=== PATIENT | female | born 1965 | race Caucasian/White ===

== ENCOUNTER 2017-07-08 09:21 | Inpatient (IN) | payer OTHER ==
[~2017-07-08] VITALS: Ht 175.3 cm; Wt 59.5 kg
--- NOTE | ~2017-07-08 | TXPLANREV ---
"PATIENT: JOEY WRAY | | [facility] UNIT #: [id number] | [address] AGE/SEX: 51 F : 69 | [address] | [place] [address] ADMIT/REG DATE: 07/08/17 | ROOM: [facility] LOC: ADTC | ADTC | Treatment Plan/Staffing Review Date: 07/30/17 Treatment plan was reviewed and determined appropriate as written: yes, client is working on relapse prevention and is to read Women and Relapse booklet. Treatment plan was reviewed and the following changes/addition/deletions are necessary: Discharge plans were reviewed and determined appropriate as previously documented: Client is being referred to [facility] to see Nahun Goldsmith on 08/07/17 at 3pm and AA/NA 4-7x/week and is to stay active [facility] to get in there if an opening comes up, unless over 1 month passes by and is doing well in [place]. Is to also go to [facility] for fellowship 08/09-. Discharge plans were reviewed and determined to be as follows: Other pertinent issues discussed during this staffing review include: Client is being recommended to a 1/2way house for added support in her recovery, to live alone in apartment is higher risk of relapse. Client had been at 1/2way house and was longest time of recovery. Staff Present: Maria De Jesus Lu, Shayna Krishnamurthy, Altagracia Hickey, Kathryn Ramsey, Gerson Wood, Maki Mcgee PRIMARY COUNSELOR: Katie Soriano Client Signature Counselor Signature Date Time "
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
--- NOTE | ~2017-07-08 | INDIVTXPL2 ---
"PATIENT: JOEY WRAY | | [facility] UNIT #: [id number] | [address] AGE/SEX: 51 F : 69 | [address] | [place] [address] ADMIT/REG DATE: 07/08/17 | ROOM: [facility] LOC: ADTC | ADTC | Individualized Treatment Plan DATE: 07/23/17 Problem Statement/Issue Identified: Client exhibits denial, minimization, and rationalization regarding their use of drugs &/or alcohol and isn't honest with self. Goal: Client is to examine Pro's and Con's about her addiction and look at what recovery offers her to enjoy life better. Objectives/Activities to achieve goal: 1. Client is to write the pros/cons list that she has arguments within herself about drinking and share with counselor. (What if I stay drinking vs if I stay sober in AA). Due Date: 07/31/17 Complete: Incomplete: 2. Client is to do EMDR therapy on this internal argument and to look at what goals could be accomplished if clean/sober. See counselor notes. Due Date: 08/02/17 Complete: Incomplete: Client Signature Date Counselor Signaure: Date Outcome/Measurement of Progress Towards Goal: Counselor Signature: Date "
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
--- NOTE | ~2017-07-08 | INDIVTXPL2 ---
"PATIENT: JOEY WRAY | | [facility] UNIT #: [id number] | [address] AGE/SEX: 51 F : 69 | [address] | [place] [address] ADMIT/REG DATE: 07/08/17 | ROOM: [facility] LOC: ADTC | ADTC | Individualized Treatment Plan DATE: 07/23/17 Problem Statement/Issue Identified: Client relapsed/returned to alcohol/drugs after previous treatment attempts. Goal: Client is to learn about Relapse Prevention, identifying relapse triggers and how to cope with them to succeed in recovery. Objectives/Activities to achieve goal: 1. Client is to attend Relapse Prevention classes every Saturday 3-4pm and participate. Due Date: 08/05/17 Complete: Incomplete: 2. Client is to fill out Relapse Prevention packet, identifying her top 10 relapse triggers and develop a plan of how to cope. Share with counselor and share selected pages in group. Due Date: 08/05/17 Complete: Incomplete: 3. Client could benefit from EMDR (using crave-x protical) to help lessen intensity of cravings in treatment or in aftercare. Due Date: ongoing Complete: Incomplete: Client Signature Date Counselor Signaure: Date Outcome/Measurement of Progress Towards Goal: Counselor Signature: Date "
--- NOTE | ~2017-07-08 | INDIVTXPL2 ---
"PATIENT: JOEY WRAY | | [facility] UNIT #: [id number] | [address] AGE/SEX: 51 F : 69 | [address] | [place] [address] ADMIT/REG DATE: 07/08/17 | ROOM: [facility] LOC: ADTC | ADTC | Individualized Treatment Plan DATE: 07/15/17 Problem Statement/Issue Identified: Client has had problems due to alcohol &/or drugs and has failed to stay clean/sober. Goal: Client is to learn about alcoholism/drug addiction, identifying consequences of her use and learn how to work the AA/NA program to succeed in living clean/sober. Objectives/Activities to achieve goal: 1. Client is to fill out Getting Started and Step 1 packets, identifying 10+ ways her use has hurt herself and others. Share with counselor and share selected pages in group. Due Date: 07/18/17 Complete: Incomplete: 2. Client is to get numbers and call potential female AA sponsors while in treatment weekly. Share progress with counselor. Due Date: ongoing Complete: Incomplete: 3. Client is to attend and talk at AA/NA weekly, make notes after a meeting of what tools/ ideas she hears that help her be motivated to succeed in recovery. Share with counselor. Due Date: ongoing Complete: Incomplete: Client Signature Date Counselor Signaure: Date Outcome/Measurement of Progress Towards Goal: Counselor Signature: Date "
--- NOTE | ~2017-07-08 | INDIVTXPL2 ---
"PATIENT: JOEY WRAY | | [facility] UNIT #: [id number] | [address] AGE/SEX: 51 F : 69 | [address] | [place] [address] ADMIT/REG DATE: 07/08/17 | ROOM: [facility] LOC: ADTC | ADTC | Individualized Treatment Plan DATE: 07/23/17 Problem Statement/Issue Identified: Client doesn't recognize difference between muslim and spirituality which has contributed to shame and abuse of chemicals. Goal: Client is to learn about spirituality and build stronger support for her recovery. Objectives/Activities to achieve goal: 1. Client is to examine AA/NA/using a sponsor as a HP in addition to Nature, list ways meetings help her. Due Date: 08/02/17 Complete: Incomplete: 2. Client is to attend Spirituality classes every Wed 3-4pm and participate. See notes. Due Date: 08/05/17 Complete: Incomplete: 3. Client is to fill out Spirituality packet, identifying her HP and how she gains support in her recovery. Due Date: ongoing Complete: Incomplete: Client Signature Date Counselor Signaure: Date Outcome/Measurement of Progress Towards Goal: Counselor Signature: Date "
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
[~2017-07-08 09:21] MED LIST: DAILY MULTIPLE1 EAC1 PO; FOLIC ACID1 MG PO; HABITROL DPS21 MG TD; LAMICTAL DPS100 MG PO; LEVAQUIN250 MG PO; MAALOX DPS30 ML PO; MAGNESIUM OXID400 MG PO; PEPCID20 MG PO; SURFAK240 MG PO; TYLENOL325 MG PO; VITAMIN B1100 MG PO
--- NOTE | 2017-07-08 11:25 | NUR ---
ADMISSION NOTE Rights/Responsibilities: Copy given and explained to client. Signed and accepted by client. Client oriented to physical lay out of the ADTC unit, given Big Book and admission packet. A John was assigned. Karmen Client is a 51yr old female. Referred by [facility]. Brought to tx by [facility] staff, where she has been for the past 5 days. Lives in [place], [place]. DOC, alcohol, last used 02/26/17, pint daily. Allergies: Codine, Meds: nurse has list. Family will participate in tx. Wasa searched no contraband found. Initial paperwork given and guidelines gone oveer.
--- NOTE | 2017-07-08 12:55 | NUR ---
Education Note: Client attended speaker Antoine Fraire
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
--- NOTE | 2017-07-08 18:06 | NUR ---
Education: 1 Hour. Client attended "Adult Children of Alcoholics" lecture presented by staff.
--- NOTE | 2017-07-08 22:24 | NUR ---
TECH NOTE: Client played a game for Recreation and attended NA Meeting. S/E: Coming to tx
--- NOTE | 2017-07-09 04:53 | NUR ---
BED NOTE: Client was in the bathroom first bedcheck and lying motionless, with eyes closed at 2nd and 3rd.
--- NOTE | 2017-07-09 11:30 | NUR ---
Morning Group, 1.0 hours, 12/05 ration, Client attended and actively participated in group which focused on homework shared and problems going on among the clients. Client shared her Step 1.
--- NOTE | 2017-07-09 15:00 | NUR ---
RELAPSE PREVENTION 1 HR: Clt participated in relapse prevention exercise.
--- NOTE | 2017-07-09 15:26 | NUR ---
Client listened to an informational speaker from [facility] and is working on Step 1.
--- NOTE | 2017-07-09 21:53 | NUR ---
Education: 1 hour lecture given by counselor on "resentments"
--- NOTE | 2017-07-09 23:17 | NUR ---
Client did beads for rec, Guided Meditation, and attended the on unit A.A.Meeting. SE: Group
--- NOTE | 2017-07-10 04:45 | NUR ---
Bed Note: Client was in bed, motionless, and in no distress at all bed checks
--- NOTE | 2017-07-10 09:54 | NUR ---
Tech Notes: Client is working on Step 2 & 3
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
--- NOTE | 2017-07-10 13:09 | NUR ---
Education note: Client attended speaker for education.
--- NOTE | 2017-07-10 15:00 | NUR ---
SPIRITUALITY 1 HR: Clt participated in an exercise in the park, along with filling out a paper on what a Higher Power means to them.
--- NOTE | 2017-07-10 18:38 | NUR ---
Education note: Client did one hour of education on the disease concept.
--- NOTE | 2017-07-10 22:48 | NUR ---
Tech Note: Client Walked a mile for rec and attended the on unit N.A.Meeting. SE: Group
--- NOTE | 2017-07-11 04:04 | NUR ---
Bed bote; Client was motionless with eyes closed at all bed checks.
--- NOTE | 2017-07-11 04:08 | NUR ---
Bed bote; Client was motionless with eyes closed at all bed checks.
--- NOTE | 2017-07-11 11:30 | NUR ---
AM/WOMEN'S GRP 1.5 HRS, Ratio 1:7/ Clt participated in grp discussion and she opened up about having a homeless lady staying at her house right now, and she gave her her bank card and pin number. She heard lots of feedback to call her bank, and she agreed to do it, but we did not get it done.
--- NOTE | 2017-07-11 15:31 | NUR ---
Tech Note: Client participated in Spiritual Enrichment. Client stated that he is working on reading the Big Book. Client went for an outdoor walk for afternoon exercise.
--- NOTE | 2017-07-11 15:50 | NUR ---
Education: Client attended a session hosted by members of the recovery community who shared their experience, strength and hope.
--- NOTE | 2017-07-11 18:21 | NUR ---
Education: 1 Hour. Client attended Min Dwyer video " Unhealthy Boundaries."
--- NOTE | 2017-07-11 20:00 | NUR ---
Family Contact- attempted to call sister and mom but no voicemail. Client stated she didn't want them involved anyway.
--- NOTE | 2017-07-11 20:42 | NUR ---
IS 1 hr/ Client and counselor went over assignments, she is to finish last page of GS, add more to Life Story of GS and do page 11 of step 1. She can share 3 pages of step 1 in group. She likely will need more work for weekend, so include her cognitions about why she wants to drink as well as why she knows she doesn't want to drink (did say "I was miserable and will "). Client may benefit from EMDR on cognitions. Plan to set up tx planning/problem and needs list next session.
--- NOTE | 2017-07-11 22:12 | NUR ---
Tech note : Client went on a mile and a half long walk, participated in guided meditation and went to an onsite AA meeting. SE; Counseling
--- NOTE | 2017-07-12 04:19 | NUR ---
tech note: client was motionless in no distress at all bed checks.
--- NOTE | 2017-07-12 14:10 | NUR ---
Group 1.5 Hr Ratio 2:22/Topic today was confronting properly. Client sharedshe was tired of what was going on and owned smoe inapproate things she said to peers.
--- NOTE | 2017-07-12 14:38 | NUR ---
Afternoon Group, 1.0 hours, 12/05 ratio, Client attended and actively participated in group which consisted of homework shared and discussion of taking suggestions from others while in treatment. Client shared how she could relate to another peers story by talking about situations that she has been in due to her drinking.
--- NOTE | 2017-07-12 15:20 | NUR ---
Tech Note: Client attended speaker meeting with volunteer Gian Haskins Client is working on Spirituality.
--- NOTE | 2017-07-12 20:42 | NUR ---
Tech note: client watched tv and movies Attended optional offsite AA meeting SE:speaker
--- NOTE | 2017-07-12 20:42 | NUR ---
Tech note: client watched tv and movies Attended optional offsite AA meeting SE:group
--- NOTE | 2017-07-12 20:45 | NUR ---
Tech note: client watched tv and movies Attended optional offsite AA meeting SE:group
--- NOTE | 2017-07-13 04:25 | NUR ---
Bed note: client was in bed with eyes closed and no distress at all bed checks.
--- NOTE | 2017-07-13 15:16 | NUR ---
Tech notes: Client attended NA panel and is working on Spirtuality.
--- NOTE | 2017-07-13 20:45 | NUR ---
Tech Note: Client played "5 Second Rule Game" for Recreation and attended an outside AA Speaker Meeting at [address] S/E: Rubén
--- NOTE | 2017-07-14 04:09 | NUR ---
tech note: client was motionless in no distress at all bed checks.
--- NOTE | 2017-07-14 16:15 | NUR ---
Tech Note: Client participated in Big Book study and is working on her Spirituality packet.
--- NOTE | 2017-07-14 23:32 | NUR ---
TECH NOTE: Client attended AA Panel, participated in community clean, watched TV and movies S/E: Nap
--- NOTE | 2017-07-15 04:57 | NUR ---
BED NOTE: Client lying motionless, with eyes closed at all bedchecks.
--- NOTE | 2017-07-15 10:26 | NUR ---
Tech Notes: Client is working on Spirtuality
--- NOTE | 2017-07-15 14:11 | NUR ---
Education Note: Client watched video for education,
--- NOTE | 2017-07-15 14:23 | NUR ---
Education/1 hr/ Focused on looking at clients character defects and we read "The Wall" and then they each alon their wall and explained them to the group. This client participated.
--- NOTE | 2017-07-15 15:31 | NUR ---
Recovery 101, 1.0 hours, Client attended and actively participated in Recovery 101 which focused on feeling special or unique from the book 12 Things That Mess Up Recovery.
--- NOTE | 2017-07-15 18:29 | NUR ---
Education note: 1 hour lecture on communication given by counselor
--- NOTE | 2017-07-15 22:57 | NUR ---
Tech note: played catchphrase for rec and attended NA meeting SE: renetta
--- NOTE | 2017-07-16 03:48 | NUR ---
Bed note: client was in bed with eyes closed and no distress at all bed checks.
--- NOTE | 2017-07-16 10:38 | NUR ---
Tech Note: Client participated in light stretching for morning exercise. Client stated that she is working on, "Spirituality."
--- NOTE | 2017-07-16 11:30 | NUR ---
GROUP 1.5 HRS. 1:9 Group discussion included issues of gaining healthier coping skills to deal with feelings and communication. Peer processed HOW TO GET STARTED IN TREATMENT assignment. This client repeatedly fell asleep and was woke up by peers and staff. She did stand a couple of times but would fall asleep again shortly after she sat back down.
--- NOTE | 2017-07-16 14:14 | NUR ---
Education: Client viewed a video presentation, "The Enablers."
--- NOTE | 2017-07-16 16:23 | NUR ---
Relapse prevention, 1.0 hours, Client attended and actively participated in relapse prevention education which focused on developing a relapse prevention plan.
--- NOTE | 2017-07-16 19:39 | NUR ---
Education: 1 hour lecture on "Step 1" given by counselor
--- NOTE | 2017-07-16 23:13 | NUR ---
Tech Note: Client worked with beads for recreation, participated in guided meditation, attended the on unit A.A.Meeting.
--- NOTE | 2017-07-17 04:09 | NUR ---
Bed Note: Client was in bed and motionless with no sign of distress at all bed checks
--- NOTE | 2017-07-17 11:30 | NUR ---
GROUP 1.5 HRS. 1:10 Group discussion included this client processing from her HOW TO GET STARTED assignment, sharing her life story and the effect of having 2 parents suffer from seizures/epilepsy. She reported dad had head injury as a child, but was able to work. Mom didn't leave the house as she was so fearful and would experience grand mal seizures. Client shared memories of them starting when she was only 6 yrs. old. She reports writing a suicide note in 2nd grade as peers made fun of her and mom got mad at her for writing it. Client shared two 13 yr. marriages, 3 bio kids, one stepson and one adopted child who was a meth baby with many issues. Client shared about losing custody of her 3 bio kids due to her alcoholism. As peers were having a discussion about grief and loss and trauma, this client mumbled that she "met a woman who knew you well". Peer asked client is she was talking in her sleep again. When told what she had said, client stated she didn't know that she said it outloud. Peer stated yesterday client was talking someone robbing a bank. Both times client had her eyes open but seemed unaware of having said anything.
--- NOTE | 2017-07-17 14:00 | NUR ---
IS 1 hr/ Client and counselor discussed treatment planning and went over her assignments. She had missed pages and is working on those, tends to skip through packets too fast. Client admits she hallucinates when has fallen asleep and may appear to be awake and grabbing for something that isn't htere. She said she has had thoughts but didn't realize she said something outloud so has heard from groups that she says wierd things. Did look up [employer] for Narcalepsy and ran off copy of symptoms so hopefully client can do a sleep study, she relates to some of the symptoms. She did ask to get release to get informatin from doctor on her x-rays of hips/bone spurs as wants a pillow or donut to sit on. Is working on finishing 1-2 pages of step 1 and then can work on Life Management packet and read on Codependency. Relates to technical engineer, poor boundaries as takes in strangers in need.
--- NOTE | 2017-07-17 14:32 | NUR ---
Tech Note: Client participated in light stretching for morning exercise and went on an outdoor walk in the afternoon. Client stated that she is working on, "Spirituality."
--- NOTE | 2017-07-17 15:00 | NUR ---
SPIRITUALITY 1 HR: Clt participated in a quiz about spiritual principals and interacted with the grp.
--- NOTE | 2017-07-17 15:06 | NUR ---
Education: Client saw the video, "Chalk Talk" by Father Christopher.
--- NOTE | 2017-07-17 22:53 | NUR ---
Tech note : Client went on a mile and a half walk for rec and attended an onsite NA meeting. SE; counseling
--- NOTE | 2017-07-18 04:25 | NUR ---
Bed note : Client was in bed motionless with eyes closed at all bed checks.
--- NOTE | 2017-07-18 04:26 | NUR ---
Bed note : Client was in bed motionless with eyes closed at all bed checks.
--- NOTE | 2017-07-18 10:20 | NUR ---
Tech note: Client is working on BB
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
--- NOTE | 2017-07-18 13:09 | NUR ---
Education note: Client attended education speaker
--- NOTE | 2017-07-18 17:39 | NUR ---
FAMILY EDUCATION 3 HRS. Client attended alone and took part in the discussion on the disease concept. Client shared chemical history and the consequences.
--- NOTE | 2017-07-18 18:50 | NUR ---
Education: 1 Hour. Client attended "Healthy Family" video.
--- NOTE | 2017-07-18 23:12 | NUR ---
TECH NOTE: Client played a game for Recreation, participated in Guided Meditation and attended in house AA Meeting. S/E: Group and Family
--- NOTE | 2017-07-19 05:00 | NUR ---
tech note: client was motionless in no distress at all bed checks.
--- NOTE | 2017-07-19 13:00 | NUR ---
PEER REVIEWS 1.5 HRS: Clt participated in peer reviews and took a risk to give open and honest feedback to those receiving a review.
--- NOTE | 2017-07-19 15:37 | NUR ---
Tech Note: Client went on outdoor walk, for exercise, attended a speaker session on Cross Addiction (Ryan Saavedra) and is working on Recovery Maintenance.
--- NOTE | 2017-07-19 17:02 | NUR ---
IS 1 hr/ Client and counselor went over her Spirituality packet, she did good job, believes in Nature as HP and agrees AA can be good HP also. She has struggled with depression but says her meds are working better now that she is sober. She is to share packet in group, is to write "gratitudes" daily and show counselor, and is to write out her internal struggle with why she wants to drink but why she knows she is better to not drink. Client did call her doctors office [facility]" in [place] and put them on speaker phone so counselor could hear the diagnosis of back spurs and what med they treated her with plus they did want her to follow-up with Orthopedic. Client then mentioned she use to take her Arthritis medication but hasn't been so is to call her pharmacy to find out name of it for our nurse/doctor so it can help with the inflammation.
--- NOTE | 2017-07-19 23:16 | NUR ---
Tech Note: Client visited with peers and watch television SE: Pillow was given back
--- NOTE | 2017-07-20 04:14 | NUR ---
tech note: client was motionless in no distress at all bed checks.
--- NOTE | 2017-07-20 16:12 | NUR ---
Tech Note: Client went to offsite AA meeting and is working on a Meditation assignment.
--- NOTE | 2017-07-20 21:19 | NUR ---
tech note:worked on beaded projects for rec and walked to AA meeting. Watched TV and movies SE:russel
--- NOTE | 2017-07-21 04:48 | NUR ---
bed note: client was in bed with eyes closed and no distress at all bed checks.
--- NOTE | 2017-07-21 16:02 | NUR ---
Tech Note: Client participated in Big Book study and is working on a Meditation assignment. She had visitors.
--- NOTE | 2017-07-21 22:56 | NUR ---
Tech note: client attended AA panel, Participated in Community clean and watched tv and movies. SE:visits
--- NOTE | 2017-07-22 04:08 | NUR ---
Bed Note: client was in bed with eyes closed and no distress at all bed checks.
--- NOTE | 2017-07-22 10:02 | NUR ---
Tech notes: Client is working on Meditation
--- NOTE | 2017-07-22 11:30 | NUR ---
Experiential Group 1.5 hr/ 2:20 Clients all participated in family sculpturing by role-playing, sharing, relating. This client was attentive and involved.
--- NOTE | 2017-07-22 13:33 | NUR ---
Education note: Client watched a video for education today.
--- NOTE | 2017-07-22 17:00 | NUR ---
FAMILY EDUCATION 3 HRS., Client attended alone and took part in the discussion on the family roles, codependency and detachment. Peers see client as scapegoat and mascot on the unit.
--- NOTE | 2017-07-22 18:02 | NUR ---
Education: 1 Hour. Client attended "Feeings" lecture.
--- NOTE | 2017-07-22 18:06 | NUR ---
Education: 1 Hour. Client attended "Feelings" lecture.
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
--- NOTE | 2017-07-22 23:42 | NUR ---
tech note: Client attended Family Session. SE: Family.
--- NOTE | 2017-07-23 04:22 | NUR ---
tech note: client was motionless in no distress at all bed checks.
--- NOTE | 2017-07-23 11:09 | NUR ---
Tech Note: Client participated in light stretching for morning exercise client stated that she is working on, "Meditation."
--- NOTE | 2017-07-23 12:06 | NUR ---
A.M. 1.5 hr res group/Group heard some how to get started assignments and a step one. This client shared a pros and cons list of being in recovery verses not. She admits to being on the fence about drinking and wants to go back to her boyfriend he is alcoholic. Also oriented 2 new people to the group rules.
--- NOTE | 2017-07-23 14:45 | NUR ---
Education: Client saw the video,"It Can't Happen to Me."
--- NOTE | 2017-07-23 15:00 | NUR ---
Relapse Prevention, 1.0 hours, Client attended and actively participated in relapse prevention education which focused on relapse justifications and how to avoid them.
--- NOTE | 2017-07-23 17:36 | NUR ---
IS 1 hr/ Client did do a pro/con list but had it focussed on pros of drinking and con of drinking with very little insight. She however still said she is depressed cause she realized she needs to give up alcohol and her BF if she wants to be healthy/sober. Client and counselor discussed how to do this in more helpful way and showed her examples. Client will be able to start EMDR next session with being oriented and safe-place.
--- NOTE | 2017-07-23 18:30 | NUR ---
Education: 1 Hour. Clients attended "Boudaries" Lecture.
--- NOTE | 2017-07-23 22:57 | NUR ---
Tech Note: Client played a pictionary for recreation, participated in Guided Meditation, and attended the on unit A.A.Meeting. SE: Counseling
--- NOTE | 2017-07-24 04:06 | NUR ---
tech note: client was motionless in no distress at all bed checks.
--- NOTE | 2017-07-24 10:14 | NUR ---
Tech Note: Client participated in light stretching for morning exercise. Client stated that he is working on, "Spirituality."
--- NOTE | 2017-07-24 11:37 | NUR ---
AM GROUP 11:11/25.5 HR: Client and peers heard two peers process from GETTING STARTED IN TREATMENT packets. The younger male doesn't believe that he is dealing with a disease whereas, the older male who processed from his own packet, recognizes the disease but wants to blame others for the way his life has played out. This client was attentive, asked clarifying questions and made comments from time to time based on own experience.
--- NOTE | 2017-07-24 13:46 | NUR ---
Education: Client watched the video, "Pleasure Unwoven."
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
--- NOTE | 2017-07-24 18:29 | NUR ---
Education note: Client recieved education from a sales and catering coordinator on sterps 2 & 3
--- NOTE | 2017-07-24 23:14 | NUR ---
Tech note : Client went on a walk for rec and attended an onsite NA meeting. SE: Group
--- NOTE | 2017-07-25 04:32 | NUR ---
Bed note : Client was motionless with eyes closed at all bed checks.
--- NOTE | 2017-07-25 11:30 | NUR ---
AM/WOMEN'S GRP 1.5 HRS, Ratio 1:8/ Clt participated in grp discussion on various topics, including men and sex. They brought up that there are guys here who are talking sex and it goes on and on and lasted all day the day before. This clt was angry, as she was placed on a change contract for her own sex talk, and she thinks the guys should be put on one too. She was asked who they were, but would not divulge their names, stating she was worried one of the women in this grp would tell them she "snitched" them out.
--- NOTE | 2017-07-25 15:21 | NUR ---
Tech Note: Client watched 2nd half of Pleasures Unwoven and is working on Quiet Moments. Client had to be woke up twice and was late to morning meditation.
--- NOTE | 2017-07-25 15:55 | NUR ---
12 step education/1 hr/ Focus was on step 11 "Sought through prayer and meditation to improve our concious contact with God". Had them answer questions on a worksheet and then we discussed. This client said she does not pray often as she does not really beleive in God.
--- NOTE | 2017-07-25 23:20 | NUR ---
Tech Note: Client played a game for recreation, participated in Guided Meditation, and attended the on unit A.A.Meeting. SE: All Day
--- NOTE | 2017-07-26 04:05 | NUR ---
Bed note: client was in bed with eyes closed and no distress at all bed checks.
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
--- NOTE | 2017-07-26 14:00 | NUR ---
IS 1 hr/ Client did fill out Life Management type of workbook and does struggle with finances so did some baby counselor on how to have emergency fund. She knows if relapses will have to go to 1/2way house. She was willing to do EMDR on relaxation and also did some on positive cognitions of being 5 years clean/sober in recovery with women at [facility] and she loved that, this is what she does want to be sober life will be happier. Her safe place was [facility] and was able to feel relaxed, yet not fall asleep.
--- NOTE | 2017-07-26 16:14 | NUR ---
Tech Note: Client watched Part 2 of Davy Rico's "Predator" and is working on Quiet Moments.
--- NOTE | 2017-07-26 20:30 | NUR ---
Tech note: Watched tv and movies. SE:mtg with counselor
--- NOTE | 2017-07-27 04:34 | NUR ---
Bed note: client was in bed with eyes closed and no distress at all bed checks
--- NOTE | 2017-07-27 16:21 | NUR ---
TECH NOTE: Client attended NA Panel and working on RP and took a nap
--- NOTE | 2017-07-27 23:01 | NUR ---
Tech note : Client played catch phrase for rec, watched the football game and walked to an offsite AA meeting. SE; football game
--- NOTE | 2017-07-28 04:04 | NUR ---
tech note: client was motionless in no distress at all bed checks.
--- NOTE | 2017-07-28 09:31 | NUR ---
Client was late for community mtg on Saturday
--- NOTE | 2017-07-28 15:00 | NUR ---
Tech note: Client attended BB study and is working on Relapse Prevention.
--- NOTE | 2017-07-28 23:38 | NUR ---
Tech Note: Client attended the A.A.Panel and participated in community clean. SE: [place] eating bugs
--- NOTE | 2017-07-29 05:08 | NUR ---
tech note: client was motionless in no distress at all bed checks.
--- NOTE | 2017-07-29 15:55 | NUR ---
TECH NOTE: Client was heard by techs making the remark "Are you guys watching that faggot" about a TV program and then another peer switched the station to a bolivian station and she said "who can understand that, this isn't fci."
--- NOTE | 2017-07-29 16:05 | NUR ---
TECH NOTE: Client attended an off-site AA meeting, watched TV and took a nap.
--- NOTE | 2017-07-29 22:42 | NUR ---
tech note:client went on walk for recreation & attended onsite NA meeting. Client watched movies. SE: 30 days clean.
--- NOTE | 2017-07-30 05:10 | NUR ---
Bed note: Client was motionless with eyes closed at all bed checks.
--- NOTE | 2017-07-30 14:24 | NUR ---
Tech Note: Client participated in light stretching for morning exercise and went on an outdoor walk in the afternoon. Client stated that she is working on, "Relapse Prevention."
--- NOTE | 2017-07-30 14:42 | NUR ---
Education: Client attended a presentation on AIDS, HIV and STDs.
--- NOTE | 2017-07-30 17:13 | NUR ---
Destiney 1.5 hr group/ratio 1:9/ Group heard assignments of getting started, also discussed dealing with the past with child support, grief issues and being their for kids and the lack of. This client did share her pros and cons list.
--- NOTE | 2017-07-30 17:54 | NUR ---
Relapse Prevention, 1.0 hours, Client attended and actively participated in relapse prevention education which focused on giving up controll.
--- NOTE | 2017-07-30 18:27 | NUR ---
Education: 1 hour lecture given by counselor on "Co-Dependency"
--- NOTE | 2017-07-30 23:38 | NUR ---
Tech note: Client went for a walk, attended an alumni meeting, participated in guided meditation and went to an onsite AA meeting. SE: Education
--- NOTE | 2017-07-31 04:24 | NUR ---
Bed note: Client was in bed with eyes closed and no distress at all bed checks
--- NOTE | 2017-07-31 10:15 | NUR ---
Tech note: Client is working on Relapse Prevention
--- NOTE | 2017-07-31 14:38 | NUR ---
Education Note: Client attended education by [facility]
--- NOTE | 2017-07-31 15:00 | NUR ---
SPIRITUALITY 1 HR: Clt participated in Spirituality exercise. They were put into 4 groups and each grp wrote a chapter(s) to a story. In the end they were all read, and they did join together nicely and it turned out interesting.
--- NOTE | 2017-07-31 15:30 | NUR ---
IS 1.25 hr/ Client didn't really want to do EMDR saying most of that stuff in the past is resolved. She was told that staff would like her to go to [facility], fear with her repeated relapses that she could and needs more support than living alone. [facility] so willing to try that if outpatient is too hard for her. She did have #'s of women and wants to go to retreat for [facility] and felt good about that. Client is to call her again before she is out. She did do releases to [address] [facility] and counselor will fax information to them. She has phone screening at 2pm today. Is starting on Relapse prevention packet and had some questions.
--- NOTE | 2017-07-31 22:51 | NUR ---
Tech note: Client worked on beaded project, celebrated 14 years clean time with staff and attended an onsite NA meeting. SE; counseling
--- NOTE | 2017-08-01 00:42 | NUR ---
Education: I hour lecture by [facility] on HIV/STDs/AID. and testing for HIV.
--- NOTE | 2017-08-01 05:20 | NUR ---
Bed note: Client was in bed with eyes closed and no distress at all bed checks.
--- NOTE | 2017-08-01 10:03 | NUR ---
Tech notes: Client is working on Relapse Prevention
--- NOTE | 2017-08-01 11:44 | NUR ---
AM/WOMEN'S GRP 1.5 HRS, Ratio 1:9/ Clt participated in grp discussion on various topics, and was confronted on her inappropriate talk, and snide remarks. She didn't own it until she flipped back on who said it, so was asked to keep it about her right now, of which she did better at. She admitted she should think before she says things. She was then asked to use I see, I think, I feel statements to the peer she flipped on. She was able to do so appropriately.
--- NOTE | 2017-08-01 12:52 | NUR ---
Education note: Client attended speaker [place]
--- NOTE | 2017-08-01 15:00 | NUR ---
12 STEPS EDU, 1 hr/ Clt participated in an exercise on the 12 Steps and 12 Traditions.
--- NOTE | 2017-08-01 23:50 | NUR ---
TECH NOTE: Client went for a walk for recreation and attended AA Meeting S/E: Speaker
--- NOTE | 2017-08-02 05:20 | NUR ---
BED NOTE: Client was lying in bed, motionless with their eyes closed at all bedchecks:
--- NOTE | 2017-08-02 12:00 | NUR ---
Group 1.5 hr/ 10:1 Clients went over group rules to orient new members and heard peers share GS/Step 1 packets. This client was attentive and related. This client was awake the whole group.
--- NOTE | 2017-08-02 13:00 | NUR ---
PEER REVIEWS 1.5 HRS: Clt participated in peer review exercise, and received her own. She heard she is gullible, too kind hearted, negative, doens't want to change, has resentments, doesn't like to listen to others, not ready to do what she needs to do for sobriety, is self-centered, has trust issues, doesn't appreciate things, isn't applying herself. She felt hurt and afraid.
--- NOTE | 2017-08-02 13:26 | NUR ---
Tech Note: Client participated in outdoor walk, watched "The [employer]" video and is working on Relapse Prevention.
--- NOTE | 2017-08-02 16:42 | NUR ---
IS 1 hr/ Client did share her Unresolved anger/hurts list, she does have issues that she could benefit from EMDR but seems to want to wait til with counselor back in [place] or maybe doesn't want to do EMDR. She [facility] to [facility] and wrote down both #'s and will call again next week. She seems open to doing that. She did fill out Journaling workbook and did excellent job in it showing how she loves herself sober so counselor complimented her on this is best relapse prev. tool just to read it as reminder why she loves recovery!!! Is to finish the Relapse Prev. packet.
--- NOTE | 2017-08-02 23:44 | NUR ---
Tech Note: Client participated in the reading of the guidelines and watched television/visited with peers. SE: Counseling session
--- NOTE | 2017-08-03 04:00 | NUR ---
tech note: client was motionless in no distress at all bed checks.
--- NOTE | 2017-08-03 15:56 | NUR ---
Tech Note: Client went to AA meeting and is working on reading the Big Book.
--- NOTE | 2017-08-03 21:27 | NUR ---
Tech note:Clients worked on beaded projects and/or watched [employer]ali for rec, Walked to AA meeting SE:AA and seeing friend
--- NOTE | 2017-08-04 04:40 | NUR ---
Bed Note: Client was in bed, motionless, with no signs of distress at all bed checks
--- NOTE | 2017-08-04 11:50 | NUR ---
Tech Note: Client went to an off site picnic. Client stated that she is working on, "Relapse Prevention."
--- NOTE | 2017-08-04 20:19 | NUR ---
Tech note: client attended AA panel, watched tv and movies.
--- NOTE | 2017-08-05 05:35 | NUR ---
Bed note: Client was in bed with eyes closed and no distress at all bed checks
--- NOTE | 2017-08-05 09:58 | NUR ---
DISCHARGE NOTE Client left tx with friend, all personal belongings went with her. Discharge instructions were gone over and copy was givem to client.
== END 2017-08-05 10:03 | disposition home or self-care (01) | DRG 895 ==
LOC: ADTC 09:45
PROVIDERS: ADMIT Family Medicine
DX: F10.24 Alcohol dependence with alcohol-induced mood disorder (principal); I10 Essential (primary) hypertension; F32.9 Major depressive disorder, single episode, unspecified; F17.210 Nicotine dependence, cigarettes, uncomplicated; G40.909 Epilepsy, unspecified, not intractable, without status epilepticus; K02.9 Dental caries, unspecified; Z87.820 Personal history of traumatic brain injury